=== PATIENT | male | born 1950 | race Caucasian/White ===

== ENCOUNTER 2017-05-16 09:58 | Day surgery (SDC) | payer MEDICARE, OTHER ==
[2017-05-16] MEDS ORDERED: PROAIR HFA8.5 GM INH (10:29)
[2017-05-16] MEDS ORDERED: FUROSEMIDE40 MG PO ×2 (10:30)
[2017-05-16] MEDS ORDERED: COREG25 MG PO (10:31)
[2017-05-16] MEDS ORDERED: VASCEPA1 GM PO (10:31)
[2017-05-16] MEDS ORDERED: K-DUR20 MEQ PO ×2 (10:32→10:33)
[2017-05-16] MEDS ORDERED: CORDARONE200 MG PO (10:32)
[2017-05-16] MEDS ORDERED: LIPITOR80 MG PO (10:33)
[2017-05-16] MEDS ORDERED: OMEPRAZOLE20 M1 PO (10:34)
[2017-05-16] MEDS ORDERED: VISTARIL25 MG PO (10:34)
[2017-05-16] MEDS ORDERED: FENOFIBRATE160 MG PO (10:34)
[2017-05-16] MEDS ORDERED: PLAVIX75 MG PO (10:35)
[2017-05-16] MEDS ORDERED: ASPIRIN325 MG PO (10:35)
[2017-05-16] MEDS ORDERED: RESTORIL15 MG PO (10:35)
[2017-05-16] MEDS ORDERED: PRESERVISION AR1 CAP PO (10:36)
[2017-05-16] MEDS ORDERED: GARLIC PO (10:37)
[2017-05-16] MEDS ORDERED: LUTEIN20 MG PO (10:37)
[2017-05-16 10:47] VITALS: BP 134/79; BMI 33.3
[2017-05-16 11:23] LABS: BASOPHILS 0.4 % (0-2); CALCIUM 9.1 mg/dL (8.5-10.1); CARBON DIOXIDE 22.2 mmol/L (21.0-32.0); CREATININE - SERUM 1.9 mg/dL (0.6-1.3); EOSINOPHILS 1.5 % (0-7); HEMATOCRIT 42.7 % (42.0-54.0); HEMOGLOBIN 14.1 g/dL (13.5-17.5); IMMATURE GRANULOCYTES 0.3 % (0-5); LYMPHOCYTES 10.8 % (15-50); MCV 90.9 fL (80.0-100.0); MEAN PLATELET VOLUME 9.7 fL (7.4-10.4); MONOCYTES 9.6 % (2-11); NEUTROPHILS 77.4 % (40-80); PLATELET COUNT 213 10x3/uL (130-400); POTASSIUM - SERUM 4.2 mmol/L (3.5-5.1); RDW 14.1 % (11.5-14.5); WBC 7.9 10x3/uL (4.8-10.8)
--- NOTE | 2017-05-16 12:43 | NUR ---
PRIOR TOP PROCEDURE MAGNET TO LEFT CHEST PACEMAKER DEFIBRILLATOR.
--- NOTE | 2017-05-16 13:11 | NUR ---
4CC OF JORGE INK INJECTED ASCENDING POLYPS.
--- NOTE | 2017-05-16 13:32 | NUR ---
BOTTLE 3 AT TRANSVERSE POLYP 75CM TATOOD 1.5 CC JORGE INK
--- NOTE | 2017-05-16 14:47 | NUR ---
7907 DISCHARGE INSTRUCTIONS COMPLETE. NO PRESCRIPTIONS GIVEN. CONSULT FOR BREVING MADE. PT HAS NO QUESTIONS OR CONCERNS AT THIS TIME. ESCORTED OUT BY VOLUNTEER.
--- NOTE | 2017-05-17 15:04 | OP ---
PATIENT NAME: TAN NIETO JR MEDICAL RECORD: [id number] :50 LOCATION:AJIT ADMISSION DATE: SURGEON: VINAY THURMAN DO DATE OF OPERATION: 05/16/2017 PROCEDURE: Colonoscopy with polypectomy and injection. SCOPE: Olympus video pediatric colonoscope. MEDICATIONS: Propofol 1100mg IV per anesthesia. WITHDRAWAL TIME: 62 minutes. ESTIMATED BLOOD LOSS: Minimal. COMPLICATIONS: None. FINDINGS: Informed consent was given. The patient was made comfortable with the above medication. After reaching an adequate level of sedation by slow IV push, the patient was placed on his left side. A digital rectal examination was performed and was normal. The endoscope was then advanced under direct visualization through the rectum to the cecum with visualization of the appendiceal orifice and ileocecal valve. The scope was slowly withdrawn and mucosa was carefully examined. There were multiple polyps visualized on today's examination. A variety of methods were used during the procedure including hot snare polypectomy and cold forceps biopsies as well as injection of saline to facilitate an endoscopic mucosal resection and injection of tattoo substance. In the ascending colon, there were four separate polyps. All of these polyps were lifted with saline to assist an endoscopic mucosal resection. They were all removed in 1 piece and completely retrieved. Polyps ranged in size from 6 mm in diameter to 12 mm in diameter. In the transverse colon, there were three polyps, 2 were removed using a saline lift for endoscopic mucosal resection. They ranged in size from 8mm-13mm in diameter. They were retrieved after snare cautery polypectomy in the EMR fashion. A third polyp was located at 75cm and was a large sessile serrated adenomatous polyp. Biopsies were taken and an attempt was made at snare resection, but the polyp was too large for snare removal and it was also too flat as the snare kept sliding over the polyp. For this reason, biopsies were taken and a tattoo was placed to facilitate finding this polyp in the future for either resection or APC therapy. In the descending colon at 45 cm, there was another large polyp which appeared to be an infiltrative type polyp. It occupied approximately 25% to 50% of the circumference the colon. It measured approximately 2 x 1 cm in size and possibly larger. Biopsies were taken from this polyp and tattoo was placed at this site to facilitate future resection or APC therapy. In the rectum, there were two other polyps, which were benign-appearing and sessile. They were removed using a hot snare. Retroflexion was performed in the rectum with visualization of internal hemorrhoids, which were small and not bleeding. The scope was then withdrawn from the patient. The patient tolerated the procedure well and there were no complications. IMPRESSION: 1. Multiple polyps as described above removed using various methods. Few of the polyps were biopsied for future removal including a resection or APC therapy. Please see the above report for details. The 2 sites of interest that are still remaining within the colon are at 75 cm and 45 cm. Both of these OPERATIVE REPORT [id number] [facility] sites were tattooed. Both of these sites appeared to be large sessile serrated adenomatous polyps. The larger of the 2 located at 45 cm could be a cancerous lesion as it does appear infiltrative and is invading the wall of the colon. 2. Small nonbleeding internal hemorrhoids. PLAN AND RECOMMENDATIONS: 1. Discharge home when recovery parameters are met. 2. Follow up biopsy specimen results. 3. Referral to Dr. Ley for APC therapy versus resection once biopsies are returned for further planning. 4. Continue current medications. 5. Continue current diet. 6. Further recommendations will be dependent on results of biopsy specimens and findings from Dr. Ley's evaluation and management. TRANSINT:[id number] Voice Confirmation ID: [id number] DOCUMENT ID: [id number] VINAY THURMAN DO at 1504 CC: [id number] DICTATION DATE: 05/16/17 1357 PAIRING MACHINE OPERATOR: 05/16/17 1441 [facility] 05/16/17 [address] [place] [address]
[2017-08-23] MEDS ORDERED: ULORIC80 MG PO (13:31)
== END 2017-05-16 14:00 | disposition home or self-care (01) ==
LOC: D.OPS 09:58
PROVIDERS: Anesthesiology
DX: K63.5 Polyp of colon (principal); Z87.891 Personal history of nicotine dependence; I10 Essential (primary) hypertension; J44.9 Chronic obstructive pulmonary disease, unspecified; G47.30 Sleep apnea, unspecified; K21.9 Gastro-esophageal reflux disease without esophagitis; Z95.5 Presence of coronary angioplasty implant and graft; Z01.812 Encounter for preprocedural laboratory examination; K64.8 Other hemorrhoids

== ENCOUNTER 2017-08-24 10:08 | Day surgery (SDC) | payer MEDICARE, OTHER ==
[~2017-08-24] VITALS: Ht 188 cm; Wt 106.6 kg
--- NOTE | ~2017-08-24 | OP ---
PATIENT NAME: TAN NIETO JR MEDICAL RECORD: [id number] :50 LOCATION:D.OPS ADMISSION DATE: SURGEON: ARCHIE DIAZ MD DATE OF OPERATION: 08/24/2017 PREOPERATIVE DIAGNOSIS: History of complex colon polyps including one at 75 cm, which was a large sessile serrated adenomatous polyp and the second was at 45 cm, both of which were tattooed. POSTOPERATIVE DIAGNOSES: 1. History of complex colon polyps including one at 75 cm, which was a large sessile serrated adenomatous polyp and the second was at 45 cm, both of which were tattooed. 2. Residual polypoid tissue. 3. Two additional colon polyps, both of which were sessile and than 1 cm in diameter. PROCEDURES: 1. Total colonoscopy to cecum. 2. Hot biopsy forceps polypectomies times 2. 3. Cold endoscopic biopsies of the distal most polyp and then ablation with the argon plasma medical billing manager. 4. Piecemeal snare polypectomy of the proximal most polyp with epinephrine injection and retattooing of the polyp and then ablation of the polypoid base with the argon plasma medical billing manager. SURGEON: Archie Diaz MD CASK MAKER: None. BLOOD LOSS: Minimal. ANESTHESIA: General. COMPLICATIONS: None. OPERATIVE COURSE: The patient was conveyed to the operating room electively on 08/24/2017. General anesthesia was induced by the anesthesia staff. The patient was placed in the La position. A digital rectal examination was performed. A colonoscope was inserted through the anus. It was easily advanced to the cecum. The prep was adequate. I slowly withdrew the endoscope. A combination of normal imaging as well as narrow band imaging were utilized. I identified 2 small sessile polyps, which were removed utilizing the hot biopsy forceps polypectomy technique. The proximal most a large polyp was identified. I advanced a sclerotherapy needle. I injected epinephrine at the base of the polyp to get the polyp lifted away from the colonic wall. Also the epinephrine was used for hemostasis. I then performed snare polypectomy of the polyp. I then grasped the portions of the polyp with an endoscopic retrieval net and withdrew them out through the anus. I readvanced the colonoscope. I then retattooed the polyp as some of the tattoo had faded. This was done through a sclerotherapy needle utilizing 4 cc of [place] ink. I then ablated the base of the polyp with the argon plasma medical billing manager utilizing the right colon setting in the forced mode. I then continued to withdraw the endoscope. I identified the distalmost polyp. OPERATIVE REPORT [id number] TAN NIETO JR Cold endoscopic biopsies were performed of this polyp. I then ablated the polypoid base with the argon plasma medical billing manager. I withdrew into the rectum. A retroflexed view was obtained in the rectum. I then unretroflexed the scope and removed it under direct vision. I will see the patient in my office in 2-3 weeks. TRANSINT:[id number] Voice Confirmation ID: [id number] DOCUMENT ID: [id number] ARCHIE DIAZ MD at 0938 CC: VINAY THURMAN DO [id number] DICTATION DATE: 08/28/17 0850 ASSEMBLER MOLDED FRAMES: 08/28/17 1159 [facility] 08/24/17 [facility] [address] [place] [address]
--- NOTE | ~2017-08-24 | HP ---
PATIENT: TAN NIETO JR MEDICAL RECORD: [id number] ACCOUNT: [id number] LOCATION:AJIT : 50 ADMISSION DATE: 08/24/17 HISTORY AND PHYSICAL EXAMINATION HISTORY: The patient has complex colon polyps. Two of these have been tattooed. I reviewed the pathology. The risks, possible complications, and alternatives to colonoscopy with the argon plasma recreation center director were explained to the patient. He elects to proceed. PAST MEDICAL AND SURGICAL HISTORY: Coronary artery disease, hypertension, congestive heart failure, coronary stents, history of pacemaker and defibrillator, gastroesophageal reflux, gout, history of nephrectomy, history of cholecystectomy, history of hernia repair. SOCIAL HISTORY: Ex-smoker. He has history of post-colonoscopy bleeding. HOME MEDICINES: Plavix, ProAir, Cordarone, Lipitor, aspirin, fenofibrate, Restoril, K-Dur, omeprazole, and others. PHYSICAL EXAMINATION: GENERAL: The patient does not appear acutely ill. He does not appear chronically ill. VITAL SIGNS: Reviewed. HEAD: External ears appear normal. EYES: Extraocular movements are intact. NECK: Trachea is midline. CHEST: No intercostal retractions. PULMONARY: Nonlabored. No stridor. ABDOMEN: Nontender. IMPRESSION: History of complex colon polyps. PLAN: Colonoscopy with polypectomies utilizing the argon plasma recreation center director. TRANSINT:[id number] Voice Confirmation ID: [id number] DOCUMENT ID: [id number] ARCHIE DIAZ MD at 0938 CC: FRANK SAMPSON and VINAY THURMAN DO [id number] DICTATION DATE: 08/24/171823 PINION POLISHER: 08/24/17 1854 [facility] 08/24/17 [facility] [address] [place] [address]
[~2017-08-24 10:08] MED LIST: ASPIRIN325 MG PO; CORDARONE200 MG PO; COREG25 MG PO; FENOFIBRATE160 MG PO; FUROSEMIDE40 MG PO; GARLIC PO; K-DUR20 MEQ PO; LIPITOR80 MG PO; LUTEIN20 MG PO; OMEPRAZOLE20 M1 PO; PLAVIX75 MG PO; PRESERVISION AR1 CAP PO; PROAIR HFA8.5 GM INH; RESTORIL15 MG PO; ULORIC80 MG PO; VASCEPA1 GM PO; VISTARIL25 MG PO
[2017-08-24 10:47] LABS: HEMATOCRIT 42.2 % (42.0-54.0); MCH 30.2 pg (26.0-34.0); MCHC 33.2 g/dL (31.0-37.0); MCV 90.9 fL (80.0-100.0); MEAN PLATELET VOLUME 9.6 fL (7.4-10.4); RBC 4.64 10x6/uL (4.20-6.10); RDW 14.3 % (11.5-14.5); WBC 7.8 10x3/uL (4.8-10.8)
[2017-08-24 11:08] LABS: ANION GAP 20.2 mmol/L (8-16); CALCIUM 9.2 mg/dL (8.5-10.1); CARBON DIOXIDE 19.7 mmol/L (21.0-32.0); CREATININE - SERUM 1.9 mg/dL (0.6-1.3); POTASSIUM - SERUM 3.9 mmol/L (3.5-5.1)
[2017-08-24 12:07] VITALS: BP 124/67; Ht 188 cm; Wt 106.6 kg
== END 2017-08-24 19:50 | disposition home or self-care (01) ==
LOC: D.OPS 10:08 → D.PAN 12:30 → D.OPS 19:50
PROVIDERS: Anesthesiology
DX: D12.6 Benign neoplasm of colon, unspecified (principal); I25.10 Atherosclerotic heart disease of native coronary artery without angina pectoris; I10 Essential (primary) hypertension; I50.9 Heart failure, unspecified; J44.9 Chronic obstructive pulmonary disease, unspecified; G47.30 Sleep apnea, unspecified; Z95.5 Presence of coronary angioplasty implant and graft; K21.9 Gastro-esophageal reflux disease without esophagitis; Z01.812 Encounter for preprocedural laboratory examination

== ENCOUNTER 2018-09-03 08:13 | Day surgery (SDC) | payer MEDICARE, OTHER ==
[~2018-09-03] VITALS: Ht 188 cm; Wt 93.2 kg
[2018-09-03 08:45] LABS: ANION GAP 14.4 mmol/L (8-16); CARBON DIOXIDE 25.6 mmol/L (21.0-32.0); CREATININE - SERUM 1.7 mg/dL (0.6-1.3)
[2018-09-03 08:46] LABS: INR 1.16 (0.85-1.17); PROTIME 14.3 SECONDS (11.6-15.0)
[2018-09-03 08:47] LABS: APTT 38.1 SECONDS (22.8-39.4)
[2018-09-03 08:50] LABS: HEMATOCRIT 41.2 % (42.0-54.0); HEMOGLOBIN 13.7 g/dL (13.5-17.5); LYMPHOCYTES 21.6 % (15-50); MCH 29.7 pg (26.0-34.0); MCHC 33.3 g/dL (31.0-37.0); MCV 89.4 fL (80.0-100.0); MEAN PLATELET VOLUME 9.6 fL (7.4-10.4); NEUTROPHILS 69.3 % (40-80); PLATELET COUNT 134 10x3/uL (130-400); RBC 4.61 10x6/uL (4.20-6.10); RDW 13.9 % (11.5-14.5)
[2018-09-03] MEDS ORDERED: VITAMIN D250000 UNIT PO (08:59)
[2018-09-03 09:08] VITALS: BP 129/58; Ht 188 cm; Wt 93.2 kg
--- NOTE | 2018-09-03 14:09 | NUR ---
DC INSTRUCTIONS GIVEN TO PT/FAMILY. STATE UNDERSTANDING. DC'D IV CATH FULLY INTACT.
--- NOTE | 2018-09-03 14:10 | NUR ---
PT LEFT UNIT VIA WC AT 1412
--- NOTE | 2018-09-04 16:06 | HP ---
PATIENT: TAN NIETO JR MEDICAL RECORD: [id number] ACCOUNT: [id number] LOCATION:AJIT : 50 ADMISSION DATE: 09/03/18 PCP: SABINA BREWSTER MD HISTORY AND PHYSICAL EXAMINATION CHIEF COMPLAINT: History of complex colon polyps. HISTORY OF PRESENT ILLNESS: The patient has a history of complex colon polyps including one at 75 cm, which is a large sessile serrated adenomatous polyp and a second at 45 cm, both of these which have been tattooed. The patient underwent polypectomies including a piecemeal snare polypectomy of the proximal most polyp and retattooing of the polyp. Pathology on the endoscopic specimen revealed an ascending colon polyp which was a tubular adenoma, another ascending colon polyp which was a tubular adenoma, a polyp at 75 cm which was a hyperplastic polyp as well as a serrated adenoma, and another colon polyp at 70 cm was a serrated polyp. The patient has had no bleeding. No abdominal pain. He has been on Plavix, but he has been off of Plavix since the . The patient had TIA just a few weeks ago. SOCIAL HISTORY: Former smoker. ALLERGIES: LIPITOR. HOME MEDICINES: Please see the nursing list. PAST MEDICAL AND SURGICAL HISTORY: COPD, sleep apnea on CPAP, history of coronary stents, hypertension, pacemaker, ICD, congestive heart failure, atrial fibrillation, history of TIA, renal insufficiency, history of right renal cancer with a nephrectomy, history of hernia repair, history of cholecystectomy, and hypertension. PHYSICAL EXAMINATION: GENERAL: The patient does not appear acutely ill. VITAL SIGNS: Reviewed. EARS: External ears appear normal. EYES: Extraocular movements are intact. NECK: Trachea midline. CHEST: No intercostal retractions. PULMONARY: Mildly labored. IMPRESSION: History of complex colon polyps. PLAN: Colonoscopy and polypectomies perhaps using endoscopic mucosal resection technique or utilizing the argon plasma net repairer or both. TRANSINT:[id number] Voice Confirmation ID: [id number] DOCUMENT ID: [id number] HISTORY AND PHYSICAL [id number] TAN NIETO JR, ROBERT MD at 1606 CC: FRANK SAMPSON [id number] DICTATION DATE: 09/03/18 1229 STONE CLEANER: 09/03/18 1254 [facility] 09/03/18 [address] [place] [address]
--- NOTE | 2018-09-04 16:06 | OP ---
PATIENT NAME: TAN NIETO JR MEDICAL RECORD: [id number] :50 LOCATION:D.OPS ADMISSION DATE: SURGEON: ALEN DIAZ MD DATE OF OPERATION: 09/03/2018 PREOPERATIVE DIAGNOSIS: History of complex colon polyps, which have been tattooed. POSTOPERATIVE DIAGNOSIS: History of complex colon polyps, which have been tattooed, with no evidence of regrowth of the polyps at the tattooed sites. PROCEDURE: Total colonoscopy to cecum. SURGEON: Alen Diaz MD CREDIT RESOLUTION REPRESENTATIVE: None. BLOOD LOSS: Minimal. ANESTHESIA: IV sedation. COMPLICATIONS: None. The risks, possible complications, and alternatives to the procedure were explained to the patient. He elects to proceed. DESCRIPTION OF PROCEDURE: The patient was conveyed to the endoscopy suite electively on 09/03/2018. IV sedation was induced by the anesthesia staff. The patient was placed in the La position. A digital rectal examination was performed. A colonoscope was inserted through the anus. It was easily advanced to the cecum. Upon withdrawal, I irrigated and aspirated extensively. The prep was fair. I noted the tattooed areas. I noted no recurrence of the polyps. A combination of normal imaging and narrow band imaging was utilized. A retroflexed view was obtained in the rectum. I then unretroflexed the scope and removed it under direct vision. I will plan to see the patient for re-colonoscopy in 3 years. There is no need for the patient to follow up with me in the office as no biopsies were performed. TRANSINT:[id number] Voice Confirmation ID: [id number] DOCUMENT ID: [id number] ALEN DIAZ MD at 1606 CC: FRANK SAMPSON [id number] DICTATION DATE: 09/03/18 1406 HEARING OFFICER: 09/03/18 1700 [facility] 09/03/18 [address] [place] [address]
== END 2018-09-03 14:12 | disposition home or self-care (01) ==
LOC: D.OPS 08:13
PROVIDERS: Anesthesiology
DX: K63.5 Polyp of colon (principal)